=== PATIENT | male | born 1970 | race American Indian/Alaskan Native ===

== ENCOUNTER 2017-04-20 15:03 | Emergency (ER) | payer SELFPAY ==
--- NOTE | 2017-04-20 17:02 | Emergency Department Report ---
HPI - General Chief Complaint: Abdominal Pain Time Seen by Provider: 04/20/17 16:52 - HPI HPI: patient here report that he went to the [facility] 2 weeks ago regarding kidney stones. Patient reports that he was unable to pass the stone and reports that he was told if he does not pass stone to return to the emergency room. He denies any pain at this time. But said he had pain and vomiting yesterday. Pain is usually localized to his abdomen and not in his flank. He denies any urinary burning frequency or urgency. Denies any blood in his urine. Pain at present is 0 out of 10. Denies any fever or chills. He reports that they gave him pain medication 2 weeks ago. She has a history of diabetes, kidney stones and surgical history of hernia repair. Patient said he is from [place] of town. ED Past Medical Hx - Past Medical History Previous Medical History?: Yes Hx Diabetes: Yes Hx Kidney Stones: Yes - Surgical History Past Surgical History?: Yes Additional Surgical History: hernia repair - Family History Family history: diabetes, hypertension - Social History Smoking Status: Former Smoker Substance Use Type: Alcohol - Medications Home Medications: Home Medications Medication Instructions Recorded Confirmed Last Taken Type Ciprofloxacin HCl [Ciprofloxacin 500 mg PO Q12HR #20 tab 04/20/17 Unknown Rx TAB] Promethazine [Phenergan TAB] 25 mg PO Q8HR PRN #12 tab 04/20/17 Unknown Rx Tamsulosin HCl [Flomax] 0.4 mg PO QDAY #3 cap.er.24h 04/20/17 Unknown Rx traMADol [Ultram] 50 mg PO Q6HR PRN #12 tablet 04/20/17 Unknown Rx ED Review of Systems ROS: Stated complaint: KIDNEY STONE Other details as noted in HPI Comment: All other systems reviewed and negative Constitutional: no symptoms reported Respiratory: no symptoms reported Cardiovascular: denies: chest pain, palpitations, dyspnea on exertion, edema, syncope, paroxysmal nocturnal dyspnea Gastrointestinal: denies: abdominal pain, nausea, vomiting Genitourinary: denies: urgency, dysuria, frequency, hematuria, discharge, testicular pain, testicular mass Musculoskeletal: denies: back pain, arthralgia, myalgia Skin: denies: rash Neurological: denies: headache, numbness, paresthesias, confusion, abnormal gait , vertigo Physical Exam - Physical Exam Vital Signs: Vital Signs 04/20/17 15:48 Temperature 98.3 F Pulse Rate 84 Respiratory 16 Rate Blood Pressure 133/87 O2 Sat by Pulse 99 Oximetry General: This is a 47-year-old male well-nourished well-developed in no acute distress. Physical Exam: Head: Normocephalic, atraumatic, no abrasion, no bruising and no contusion. Neck: Supple, Positive Cervical adenopathy, full range of motion and no C-spine tenderness. No swelling or tracheal deviation Cardiovascular: S1, S2. Regular rate and rhythm. No murmur. Capillary refill is less then 3 seconds. Abdomen: Soft, nontender to palpate in all quadrants, no guarding no rebound tenderness, no peritoneal signs and no CVA tenderness. Lungs: Clear to auscultate bilaterally. No rhonchi, wheezes or rales. No chest wall tenderness MSK: Strength 5/5 in all extremities. No joint deformity or crepitus. Normal inspection. Full range of motion to all extremities Extremities: No clubbing, cyanosis or edema. +2 pulses. No neurovascular compromise Skin: Clean, dry and intact. No rash or lesions. Psych: Normal mood and behavior. ED Course Vital Signs 04/20/17 15:48 Temperature 98.3 F Pulse Rate 84 Respiratory 16 Rate Blood Pressure 133/87 O2 Sat by Pulse 99 Oximetry - Reevaluation(s) Reevaluation #1: 04/20/17 18:09 She is stable throughout ED course. He is able to tolerate oral liquids. He did not want anything for pain because he said his pain is 0 out of 10. Awaiting results of BMP and CT scan. urinalysis is normal Reevaluation #2: 04/20/17 18:26 Patient is stable and still awaits CT scan of the abdomen and pelvis ED Medical Decision Making - Lab Data Result diagrams: 04/20/17 17:20 Lab Results 04/20/17 04/20/17 Range/Units 17:20 Unknown Sodium 145 (137-145) mmol/L Potassium 3.7 (3.6-5.0) mmol/L Chloride 104.8 (98-107) mmol/L Carbon Dioxide 28 (22-30) mmol/L Anion Gap 16 mmol/L BUN 10 (9-20) mg/dL Creatinine 1.0 (0.8-1.5) mg/dL Estimated GFR > 60 ml/min BUN/Creatinine Ratio 10 % Glucose 73 L (75-100) mg/dL Calcium 9.1 (8.4-10.2) mg/dL Urine Color Yellow (Yellow) Urine Turbidity Clear (Clear) Urine pH 6.0 (5.0-7.0) Ur Specific [place] 1.028 (1.003-1.030) Urine Protein <15 mg/dl (Negative) mg/dL Urine Glucose (UA) Neg (Negative) mg/dL Urine Ketones Neg (Negative) mg/dL Urine Blood Neg (Negative) Urine Nitrite Neg (Negative) Urine Bilirubin Neg (Negative) Urine Urobilinogen < 2.0 (<2.0) mg/dL Ur Leukocyte Esterase Neg (Negative) Urine WBC (Auto) 3.0 (0.0-6.0) /HPF Urine RBC (Auto) 10.0 (0.0-6.0) /HPF U Epithel Cells (Auto) 1.0 (0-13.0) /HPF Urine Mucus 3+ /HPF - Radiology Data Radiology results: report reviewed CT scan of the abdomen and pelvis without contrast reveals small nonobstructing calculus visualized right kidney. There is no hydronephrosis or urethral callculi . Samantha-pelvic Cysts appears to be present in the right kidney . Mild k right side of the colon. Cannot exclude a short segment of diverticulitis Bilateral spondylolisthesis L4 with grade 1 spondylolisthesis. Mild to moderate degenerative disc disease at the L5 to S1 level severe degenerative disc disease is visualized at the L4 to 5 level LV to S1 level with there appears to be an asymmetric disc bulge or herniation to the right which may be compressing the right S1 nerve root. Prostate gland does not appears to be enlarged. Ureters are not distended. Urinary bladder is only partially filled and therefore stubbed optimally visualized. Right shoulder roll peritoneum with normal abdominal aorta and no aneurysm. Dependent atelectasis bilateral lower lung toure. Liver, gallbladder, pancreas and spleen are unremarkable. - Medical Decision Making ED course: Patient with history of kidney stones where he was seen at the Hospital 2 weeks ago and reported that he was told to return to hospital if he does not pass kidney stone. He also said that provided told him that the stone was small and it was not affected in his kidneys so therefore he will pass it over time. Patient said he was given pain medication and told to drink plenty of fluid but he has not passed stone so that's why he is back in the emergency room. Patient's that he has episode of nausea with abdominal pain yesterday but today he is asymptomatic. Urinalysis normal, BMP stable. CT scan of the abdomen and pelvis reveal small nonobstructive calculus visualized right kidney. There is no hydronephrosis or urethral calculi. Peripelvic cyst appears to be present in the right kidney. Mild diet for her to colitis right side of the colon. Cannot exclude a short segment of diverticulitis. Patient said he had nausea and vomiting with pain to her abdomen yesterday. But he is nontender to palpate. He has bilateral spondylolis at L4 with grade 1 spondylolisthesis. This is explained to patient in detail along with subacute degenerative disc disease. I discussed with him to put him on antibiotic for mild diverticulitis, anti-medic for nausea, Flomax to help to move kidney stone and I also discussed them that this does not always work and that kidney stone could stain his kidney and as long as it is not obstructing in his kidneys then he should not have a problem. I also told him that his kidney function is normal and his urinalysis was normal. I explained to patient that he has mild atelectasis in his lower lung field that he needs to deep breathe and cough more. Patient to be managed outpatient with GI doctor and urologist. He understands that he has to increase his fluid intake and take all medication as prescribed. She discharged home with CD off CT scan and given a prescription for Phenergan, ciprofloxacin and Flomax. Patient asymptomatic throughout ED stay. Critical care attestation.: If time is entered above; I have spent that time in minutes in the direct care of this critically ill patient, excluding procedure time. ED Disposition Clinical Impression: Right kidney stone, Diverticulosis of colon, Nausea and vomiting in adult, Renal cyst, Bulging lumbar disc Diverticulitis large intestine Qualifiers: Diverticulitis bleeding: without bleeding Diverticulitis complication: without perforation or abscess Qualified Code(s): K57.32 - Diverticulitis of large intestine without perforation or abscess without bleeding Degenerative disc disease Qualifiers: Spinal region: lumbosacral Qualified Code(s): M51.37 - Other intervertebral disc degeneration, lumbosacral region Disposition: DC-01 TO HOME OR SELFCARE Is pt being admited?: No Does the pt Need Aspirin: No Condition: Stable Instructions: Diverticulosis (ED), Kidney Stones (ED), Renal Colic (ED), Lumbar Disc Herniation (ED), How to Strain Your Urine (ED), Diverticulitis Diet (ED), Diverticulosis Diet (ED), Degenerative Disc Disease (ED) Additional Instructions: Please increase your fluid intake to 2-3 L of fluid per day Take Flomax and this will help to expedite passing the stone. Please follow up with [facility] for management of kidney stones Prescriptions: Ciprofloxacin HCl [Ciprofloxacin TAB] 500 mg PO Q12HR #20 tab Promethazine [Phenergan TAB] 25 mg PO Q8HR PRN #12 tab PRN Reason: Nausea Tamsulosin HCl [Flomax] 0.4 mg PO QDAY #3 cap.er.24h traMADol [Ultram] 50 mg PO Q6HR PRN #12 tablet PRN Reason: Pain Referrals: [facility] [Provider Group] - 2-3 Days [facility] [Provider Group] - 2-3 Days JOSE SINGH MD [Staff Physician] - 2-3 Days Forms: Accompanied Note, Work/School Release Form(ED)
[2017-04-20 17:41] LABS: Bilirubin,Urine NEG (Negative); Blood,Urine NEG (Negative); Ketones,Urine NEG (Negative); Leukocyte Esterase,Urine NEG (Negative); Mucus,Urine 3+ /HPF; Nitrite,Urine NEG (Negative); Protein,Urine <15 mg/dL mg/dL (Negative); Urobilinogen,Urine < 2.0 mg/dL (<2.0)
[2017-04-20 17:55] LABS: Anion Gap 16 mmol/L; BUN/Creatinine Ratio 10; Blood Urea Nitrogen 10 mg/dL (9-20); Calcium 9.1 mg/dL (8.4-10.2); Carbon Dioxide 28 mmol/L (22-30); Chloride 104.8 mmol/L (98-107); Glucose 73 mg/dL (75-100); Potassium 3.7 mmol/L (3.6-5.0); Sodium 145 mmol/L (137-145)
--- NOTE | 2017-04-20 18:28 | Cat Scan Report ---
FINAL REPORT PROCEDURE: CT ABDOMEN PELVIS WO CON TECHNIQUE: Computerized axial tomography of the abdomen and pelvis was performed without intravenous contrast. This study is performed without intravascular contrast material and its sensitivity for abdominal and pelvic pathology, including neoplasms, inflammation, abscess, free fluid, thrombosis, arterial dissection and infarction, is reduced compared with a contrast enhanced study. HISTORY: renal colic with h/o kidney stones COMPARISON: No prior studies are available for comparison. FINDINGS: Lower Lung toure: There is minimal dependent atelectasis bilaterally. Upper Abdomen: The liver, the gallbladder, unenhanced images of the pancreas and spleen are unremarkable. Kidneys, Ureters and Urinary bladder: There is an oval low-density nodule in the midportion of the right kidney projecting towards the renal pelvis measuring 1.7 x 2.6 centimeter which appears to represent a peripelvic cyst. A nonobstructing calculus in the lower 3rd of the right kidney is visualized measuring 4.2 by 1.8 millimeters. The right and left kidneys otherwise are unremarkable. There is no hydronephrosis. The ureters are not distended. No ureteral calculi are identified. Urinary bladder is only partially filled and therefore suboptimally visualized. No focal abnormality is seen. Retroperitoneum: Abdominal aorta appears normal. No aneurysm is seen Nonspecific subcentimeter lymph nodes are seen in the retroperitoneum. No pathologically enlarged lymph nodes are identified. Bowel: There is mild diverticulosis in the right side of the colon. On image 89 series 3 axial image and coronal reconstruction image 64 series 201 there appears to be mild wall thickening in the right side of the colon and slight decreased density in the submucosal layer. I cannot exclude diverticulitis. I do not see evidence of an abscess or bowel obstruction. Bowel loops otherwise are unremarkable. Normal-appearing appendix is seen in the right lower quadrant. Reproductive organs: Prostate gland does not appear to be enlarged. Other: There is bilateral spondylolysis at L4 with grade 1 spondylolisthesis. Severe degenerative disc disease is visualized at the L4-5 level. There is mild to moderate degenerative disc disease at the L5-S1 level. At the L5-S1 level there appears to be an asymmetric disc bulge or herniation to the right which may be compressing the right S1 nerve root. IMPRESSION: Small nonobstructing calculus visualize right kidney. The no hydronephrosis or ureteral calculi are visualized. Peripelvic cysts appears to be present in the right kidney as described. Mild diverticulosis right side of the colon. As described I cannot exclude a short segment of diverticulitis. Correlation with physical exam recommended. If clinically indicated barium enema could be performed to evaluate the right colon further. Please see above image reference numbers. Bilateral spondylolysis L4 with grade 1 spondylolisthesis..
[2017-04-20 19:03] VITALS: BP 125/79
== END 2017-04-20 19:20 | disposition home or self-care (01) ==
LOC: ED 15:03
DX: K57.32 Diverticulitis of large intestine without perforation or abscess without bleeding (principal); M51.37 Other intervertebral disc degeneration, lumbosacral region; N20.0 Calculus of kidney; K57.90 Diverticulosis of intestine, part unspecified, without perforation or abscess without bleeding; N28.1 Cyst of kidney, acquired; R11.2 Nausea with vomiting, unspecified; M51.06 Intervertebral disc disorders with myelopathy, lumbar region; E11.9 Type 2 diabetes mellitus without complications; Z87.891 Personal history of nicotine dependence
CPT/HCPCS: 36415; 74176; 80048; 81001

== ENCOUNTER 2017-04-27 18:47 | Inpatient (IN) | payer OTHER ==
[2017-04-27 20:13] LABS: Basophils % (Auto) 0.4 % (0.0-1.8); Eosinophils % (Auto) 1.5 % (0.0-4.3); Hematocrit 50.9 % (35.5-45.6); Hemoglobin 16.2 gm/dl (11.8-15.2); Mean Corpuscular HGB Conc 32 % (32-34); Mean Corpuscular Volume 80 fl (84-94); Platelet Count 288 K/mm3 (140-440); Red Blood Count 6.39 M/mm3 (3.65-5.03); Red Cell Distribution Width 15.1 % (13.2-15.2); White Blood Count 19.6 K/mm3 (4.5-11.0)
[2017-04-27 20:27] LABS: Mean Corpuscular Hemoglobin 25 pg (28-32)
[2017-04-27 20:30] LABS: Alanine Aminotransferase 9 units/L (7-56); Albumin 4.3 g/dL (3.9-5); Albumin/Globulin Ratio 1.1 %; Alkaline Phosphatase 68 units/L (35-129); Anion Gap 20 mmol/L; BUN/Creatinine Ratio 11; Blood Urea Nitrogen 11 mg/dL (9-20); Calcium 9.6 mg/dL (8.4-10.2); Carbon Dioxide 25 mmol/L (22-30); Chloride 98.4 mmol/L (98-107); Glucose 95 mg/dL (75-100); Lipase 23 units/L (13-60); Potassium 4.2 mmol/L (3.6-5.0); Sodium 139 mmol/L (137-145); Total Protein 8.1 g/dL (6.3-8.2)
[2017-04-27 20:47] LABS: Bacteria,Urine 1+ /HPF (Negative); Bilirubin,Urine NEG (Negative); Blood,Urine NEG (Negative); Ketones,Urine 20 mg/dL (Negative); Leukocyte Esterase,Urine NEG (Negative); Mucus,Urine 2+ /HPF; Nitrite,Urine NEG (Negative); Protein,Urine <15 mg/dL mg/dL (Negative); Urobilinogen,Urine < 2.0 mg/dL (<2.0)
[2017-04-27] MEDS ORDERED: ZOFRAN IV ONE (23:51)
[2017-04-27] MEDS ORDERED: MORPHINE IV ONE (23:51)
[2017-04-27] MEDS ORDERED: NACL 0.9% 1000 ML 1,000 ML IV ONE (23:52)
--- NOTE | 2017-04-27 23:58 | Emergency Department Report ---
HPI - General Chief Complaint: Abdominal Pain Time Seen by Provider: 04/27/17 23:36 - HPI HPI: 47 year-old male presents to the emergency department with complaint of some chronic abdominal pain, nausea, vomiting. The pain is in the mid to lower portion of his abdomen. The patient was seen at [facility] 3 weeks ago was told that he had a "small kidney stone" and that it would pass. He was seen here at [facility] about one week ago and was found to have an intrarenal stone but otherwise no stone in the ureter, diverticulosis and possible diverticulitis. He went home on Cipro, Flomax, tramadol and Phenergan and says that these medications have not been working. He says that he did make an appointment with the business process consultant but it is not until middle of May. He otherwise does not have a primary care physician. ED Past Medical Hx - Past Medical History Hx Diabetes: Yes Hx Kidney Stones: Yes - Surgical History Additional Surgical History: hernia repair,kidney stone - Social History Smoking Status: Never Smoker Substance Use Type: None - Medications Home Medications: Home Medications Medication Instructions Recorded Confirmed Last Taken Type Ciprofloxacin HCl [Ciprofloxacin 500 mg PO Q12HR #20 tab 04/20/17 Unknown Rx TAB] Promethazine [Phenergan TAB] 25 mg PO Q8HR PRN #12 tab 04/20/17 Unknown Rx Tamsulosin HCl [Flomax] 0.4 mg PO QDAY #3 cap.er.24h 04/20/17 Unknown Rx traMADol [Ultram] 50 mg PO Q6HR PRN #12 tablet 04/20/17 Unknown Rx ED Review of Systems ROS: Stated complaint: ABD PAIN Other details as noted in HPI Comment: All other systems reviewed and negative Constitutional: denies: chills, fever Eyes: denies: eye pain, eye discharge, vision change ENT: denies: ear pain, throat pain Respiratory: denies: cough, shortness of breath, wheezing Cardiovascular: denies: chest pain, palpitations Gastrointestinal: abdominal pain, nausea, vomiting Genitourinary: denies: urgency, dysuria Musculoskeletal: denies: back pain, joint swelling, arthralgia Skin: denies: rash, lesions Neurological: denies: headache, weakness, paresthesias Physical Exam - Physical Exam Vital Signs: Vital Signs 04/27/17 04/27/17 04/27/17 19:11 19:17 23:53 Temperature 99.0 F 99 F Pulse Rate 98 H Respiratory 18 18 16 Rate Blood Pressure 125/89 125/89 O2 Sat by Pulse 100 97 Oximetry Physical Exam: GENERAL: The patient is well-developed well-nourished. HENT: Normocephalic. Atraumatic. Patient has moist mucous membranes. EYES: Extraocular motions are intact. Pupils equal reactive to light bilaterally. NECK: Supple. Trachea is midline. CHEST/LUNGS: Clear to auscultation. There is no respiratory distress noted. HEART/CARDIOVASCULAR: Regular. There is no tachycardia. There is no gallop rub or murmur. ABDOMEN: Abdomen is soft. There is some periumbilical tenderness to palpation but no guarding or rebound tenderness. No peritoneal signs. Patient has normal bowel sounds. There is no abdominal distention. SKIN: Skin is warm and dry. NEURO: The patient is awake, alert, and oriented. The patient is cooperative. The patient has no focal neurologic deficits. The patient has normal speech. MUSCULOSKELETAL: There is no tenderness or deformity. There is no limitation range of motion. There is no evidence of acute injury. ED Course Vital Signs 04/27/17 04/27/17 04/27/17 19:11 19:17 23:53 Temperature 99.0 F 99 F Pulse Rate 98 H Respiratory 18 18 16 Rate Blood Pressure 125/89 125/89 O2 Sat by Pulse 100 97 Oximetry - Consultations Consultation #1: I spoke to the general surgeon telephone operator chief, Dr. Lieberman, who did not feel that the patient required a NG tube but has agreed to see the patient has a consultation. He requested that a repeat CBC be done. 04/28/17 03:36 ED Medical Decision Making - Lab Data Result diagrams: 04/28/17 02:27 04/27/17 19:47 - Radiology Data Radiology results: report reviewed EXAM: CT ABDOMEN PELVIS W CON HISTORY: Abd pain MIDLINE PELVIC PAIN TECHNIQUE: Routine axial imaging was obtained of the abdomen and pelvis following the intravenous injection of 100 cc of Omnipaque 350. Sagittal and coronal reconstructions were reviewed. The previous study of 04/20/2017 was reviewed for correlation. FINDINGS: The lung bases are clear. Pleural fluid is not seen. The liver, gallbladder, pancreas, spleen, and adrenal glands appear normal. The kidneys are remarkable for a 2.3 cm peripelvic cyst in the right kidney. There is no evidence of hydronephrosis. The vascular structures enhance normally. There is no evidence of lymphadenopathy. The bowel loops reveal mildly distended ileal loops in the lower pelvis measure up to 3.3 cm in diameter. There are multiple partially fluid-filled loops of ileum. A partial mechanical small bowel obstruction cannot entirely be excluded. The appendix appears normal. In the pelvis the prostate gland and bladder appear normal. The skeletal structures reveal grade 1 anterolisthesis of L4 over L5 secondary to disc degeneration and pars defects. IMPRESSION: Distended and fluid-filled loops of ileum as described suspicious for partial mechanical small bowel obstruction. Normal appendix. Transcribed By: RB Dictated By: JOSE GARCIA MD Electronically Authenticated By: JOSE GARCIA MD Signed Date/Time: 04/27/172137 - Medical Decision Making 47-year-old male with acute on chronic abdominal pain, nausea and vomiting has a CT scan that shows concern for partial small bowel obstruction. He will be admitted to the hospitalist service with a Gen. surgery consultation. Vital signs stable. The patient has a 20,000 white count but upon repeated the CBC appears to have gone down to about 15,000. Given some Zosyn empirically. Accepted for admission by hospitalist, Dr. Burroughs. - Differential Diagnosis nephrolithiasis, appendicitis, diverticulitis, bowel obstruction Critical Care Time: No Critical care attestation.: If time is entered above; I have spent that time in minutes in the direct care of this critically ill patient, excluding procedure time. ED Disposition Clinical Impression: Partial small bowel obstruction Abdominal pain Qualifiers: Abdominal location: periumbilical Qualified Code(s): R10.33 - Periumbilical pain Leukocytosis Qualifiers: Leukocytosis type: unspecified Qualified Code(s): D72.829 - Elevated white blood cell count, unspecified Disposition: 09 OP ADMIT IP TO THIS HOSP Is pt being admited?: Yes Condition: Stable Referrals: PRIMARY CAREMD [Primary Care Provider] - 3-5 Days Time of Disposition: 03:39
[2017-04-28] MEDS ORDERED: NACL ONE (00:40)
--- NOTE | 2017-04-28 01:41 | Cat Scan Report ---
FINAL REPORT EXAM: CT ABDOMEN PELVIS W CON HISTORY: Abd pain MIDLINE PELVIC PAIN TECHNIQUE: Routine axial imaging was obtained of the abdomen and pelvis following the intravenous injection of 100 cc of Omnipaque 350. Sagittal and coronal reconstructions were reviewed. The previous study of 04/20/2017 was reviewed for correlation. FINDINGS: The lung bases are clear. Pleural fluid is not seen. The liver, gallbladder, pancreas, spleen, and adrenal glands appear normal. The kidneys are remarkable for a 2.3 cm peripelvic cyst in the right kidney. There is no evidence of hydronephrosis. The vascular structures enhance normally. There is no evidence of lymphadenopathy. The bowel loops reveal mildly distended ileal loops in the lower pelvis measure up to 3.3 cm in diameter. There are multiple partially fluid-filled loops of ileum. A partial mechanical small bowel obstruction cannot entirely be excluded. The appendix appears normal. In the pelvis the prostate gland and bladder appear normal. The skeletal structures reveal grade 1 anterolisthesis of L4 over L5 secondary to disc degeneration and pars defects. IMPRESSION: Distended and fluid-filled loops of ileum as described suspicious for partial mechanical small bowel obstruction. Normal appendix.
[2017-04-28] MEDS ORDERED: ZOSYN/NS 4.5GM/100ML 4.5 GM/100 ML VIAL IV ONE (02:01)
[2017-04-28 02:40] LABS: Basophils % (Auto) 0.5 % (0.0-1.8); Eosinophils % (Auto) 2.3 % (0.0-4.3); Hematocrit 44.8 % (35.5-45.6); Hemoglobin 14.8 gm/dl (11.8-15.2); Mean Corpuscular HGB Conc 33 % (32-34); Mean Corpuscular Hemoglobin 26 pg (28-32); Mean Corpuscular Volume 79 fl (84-94); Platelet Count 243 K/mm3 (140-440); Red Blood Count 5.64 M/mm3 (3.65-5.03); Red Cell Distribution Width 14.4 % (13.2-15.2); White Blood Count 14.7 K/mm3 (4.5-11.0)
[2017-04-28] MEDS ORDERED: MORPHINE IV ONE (03:04)
[2017-04-28] MEDS ORDERED: MORPHINE ONE (03:17)
[2017-04-28] MEDS ORDERED: MORPHINE IV PRN (03:19)
[2017-04-28] MEDS ORDERED: ZOFRAN IV PRN (03:19)
[2017-04-28] MEDS ORDERED: TYLENOL PO PRN (03:19)
--- NOTE | 2017-04-28 03:21 | History and Physical Report ---
History of Present Illness Date of examination: 04/28/17 History of present illness: 47-year-old man with no medical problem causing emergency room with complaints of bone pain. He was seen also on June 20 for similar symptoms and was discharged from the emergency room. Abdominal pain is in the mid abdomen which he described as dull pain, intermittent in nature, lasting for 5 minutes, intensity 7/10, no radiation and he cannot identify exacerbating or relieving factor. He has been experiencing multiple episodes of nausea vomiting, unable to tolerate oral intake Review Of Systems: Constitutional: no weight loss Ears, eyes, nose, mouth and throat: no nasal congestion, no nasal discharge, no sinus pressure, blurry vision, diplopia Neck: No neck pain or rigidity. Cardiovascular: chest pain, orthopnea, palpitations Respiratory: No shortness of breath, cough Gastrointestinal: +abdominal pain, no hematochezia Genitourinary : no dysuria, frequency , hematuria Musculoskeletal: no muscle ache Integumentary: no rash, no pruritis Neurological: no parathesias, focal weakness Endocrine: no cold or heat intolerance, no polyuria or polydipsia Hematologic/Lymphatic: no easy bruising, no easy bleeding, no gland swelling Allergic/Immunologic: no urticaria, no angioedema. PAST MEDICAL HISTORY:none PAST SURGICAL HISTORY: Hernia repair FAILY HISTORY: Hypertension SOCIAL HISTORY: Denies alcohol, tobacco or drug Medications and Allergies Allergies Allergy/AdvReac Type Severity Reaction Status Date / Time No Known Allergies Allergy Unverified 04/20/17 15:46 Home Medications Medication Instructions Recorded Confirmed Last Taken Type Ciprofloxacin HCl [Ciprofloxacin 500 mg PO Q12HR #20 tab 04/20/17 Unknown Rx TAB] Promethazine [Phenergan TAB] 25 mg PO Q8HR PRN #12 tab 04/20/17 Unknown Rx Tamsulosin HCl [Flomax] 0.4 mg PO QDAY #3 cap.er.24h 04/20/17 Unknown Rx traMADol [Ultram] 50 mg PO Q6HR PRN #12 tablet 04/20/17 Unknown Rx Exam - Physical Exam Narrative exam: Gen. appearance: Patient lying in bed in no acute distress HEENT: Normocephalic/atraumatic, pupils equal round reactive to light, extra alkaline movement intact, no scleral icterus, no JVD or thyromegaly or nodule, neck is supple, mucous membrane moist, no erythema or exudate Heart: S1-S2, regular rate and rhythm Lungs: Clear to auscultation bilateral breathing comfortable Abdomen: Positive bowel sounds, tender in the mid abdomen, nondistended, no organomegaly Extremities: No edema, cyanosis, clubbing Neuro:: Oriented 3 , cranial nerves II-12 intact, speech, motor intact Skin: No rash, nodules, warm dry - Constitutional Vitals: Temp Pulse Resp BP Pulse Ox 99 F 98 H 16 107/65 98 04/27/17 19:17 04/27/17 19:17 04/27/17 23:53 04/28/17 01:00 04/28/17 01:00 Results - Labs CBC & Chem 7: 04/28/17 02:27 04/27/17 19:47 Labs: Abnormal lab results 04/27/17 04/28/17 Range/Units 19:47 02:27 WBC 19.6 H 14.7 H (4.5-11.0) K/mm3 RBC 6.39 H 5.64 H (3.65-5.03) M/mm3 Hgb 16.2 H (11.8-15.2) gm/dl Hct 50.9 H (35.5-45.6) % MCV 80 L 79 L (84-94) fl MCH 25 L 26 L (28-32) pg Lymph % (Auto) 9.8 L (13.4-35.0) % [place] % (Auto) 7.6 H (0.0-7.3) % [place] # 1.2 H 1.1 H (0.0-0.8) K/mm3 Seg Neutrophils % 82.3 H 74.8 H (40.0-70.0) % Seg Neutrophils # 16.1 H 11.0 H (1.8-7.7) K/mm3 - Imaging and Cardiology CT scan - abdomen: report reviewed CT scan - pelvis: report reviewed Assessment and Plan Assessment Small bowel obstruction SIRS Plan Admit medicine Placed on bowel rest, NG tube to suction Start IV full, IV Zosyn, consult surgery DVT prophylaxis, IV morphine
[2017-04-28] MEDS ORDERED: NACL 0.45% 1000 ML 1,000 ML IV SCH (04:00)
[2017-04-28] MEDS: NACL 0.9% 1000 ML 1,000 ML IV SCH (12:02)
[2017-04-28] MEDS: ZOSYN/NS 4.5GM/100ML 4.5 GM/100 ML VIAL IV SCH ×4 (12:02→23:29)
[2017-04-28] MEDS: LOVENOX SUB-Q SCH (12:03)
[2017-04-28] MEDS ORDERED: CHLORASEPTIC MM PRN (12:31)
[2017-04-28] MEDS: PEPCID IV SCH ×2 (13:52→23:30)
--- NOTE | 2017-04-29 03:02 | Consultation ---
HISTORY OF PRESENT ILLNESS: This man was seen last night apparently by our hospitalist and he was admitted. He was seen three times in the emergency rooms in the last 3 weeks and he had three CT scans from what he told me. The first one was in [place], second one was here and then this is the third time. He was told that he has a kidney stone on the left side and he came with some pain to the abdomen, more to the right flank area with nausea, no vomiting. He denied any stones in the past. Apparently, he was not seen by urologist because he did not go to see urologist, although he was given a name for him to see. The patient had surgery on the right inguinal area and he never had any operations. He denied any diabetes. He is a healthy young man otherwise. According to him, the pain has improved markedly and he does not have any pain now when I saw him late in the morning of 04/28/2017. ALLERGIES: Allergic reactions were denied. MEDICATIONS: None. SOCIAL HISTORY: The patient has 7 children, youngest is 6 years old and the oldest is 24 from what I could tell. PHYSICAL EXAMINATION: GENERAL: Well-preserved, healthy looking young black man who is in no distress to me. He had NG tube, but that is not aspirating anything. HEAD AND NECK: Essentially negative. NECK: Supple. CHEST: Essentially clear. HEART: Sounds normal to me. ABDOMEN: Flat, soft, benign. Very minimal tenderness in the right flank area. GENITALIA: Showed normal male genitalia. NEUROLOGIC: Neurologically, the patient is stable. IMPRESSION AND PLAN: Right-sided abdominal pain with nausea with questionable minimal dilatation of the small intestines. I believe this is all related to the kidney stone that he had. It is on the right side from what he told me. At the present time, I believe, no surgical intervention is warranted. He needs Urology to see him trying to get hold of hospitalist into that effect.I called Dr Esqueda in this regard , she will handle it . JOB# [id number] ELISABET/MELISSA ALVARADO
[2017-04-29] MEDS: NACL 0.9% 1000 ML 1,000 ML IV SCH (03:37)
[2017-04-29 05:05] LABS: Basophils % (Auto) 0.3 % (0.0-1.8); Eosinophils % (Auto) 2.9 % (0.0-4.3); Hematocrit 42.4 % (35.5-45.6); Hemoglobin 14.4 gm/dl (11.8-15.2); Mean Corpuscular HGB Conc 34 % (32-34); Mean Corpuscular Hemoglobin 27 pg (28-32); Mean Corpuscular Volume 80 fl (84-94); Platelet Count 252 K/mm3 (140-440); Red Blood Count 5.32 M/mm3 (3.65-5.03); Red Cell Distribution Width 14.8 % (13.2-15.2)
[2017-04-29] MEDS: ZOSYN/NS 4.5GM/100ML 4.5 GM/100 ML VIAL IV SCH ×3 (05:10→23:35)
[2017-04-29 05:27] LABS: Anion Gap 19 mmol/L; BUN/Creatinine Ratio 11; Blood Urea Nitrogen 13 mg/dL (9-20); Calcium 8.6 mg/dL (8.4-10.2); Carbon Dioxide 25 mmol/L (22-30); Chloride 104.4 mmol/L (98-107); Glucose 79 mg/dL (75-100); Potassium 3.8 mmol/L (3.6-5.0); Sodium 145 mmol/L (137-145)
[2017-04-29] MEDS: LOVENOX SUB-Q SCH (10:20)
[2017-04-29] MEDS: PEPCID IV SCH ×2 (10:48→23:35)
--- NOTE | 2017-04-29 17:53 | Progress Note ---
Assessment and Plan Assessment and plan: SBO - s/p NGT to suction, bowel rest; improving, start clear liquid diet and continue to monitor Nephrolithiasis - right renal stone; incidental finding on a previous CT; not related with current symptoms and imaging of dilated small bowel loops; will need outpatient monitoring, possible reimaging in 4-6 months DVT prophylaxis History Interval history: feeling better, NGT tube removed no nausea or vomiting, passing gas Hospitalist Physical - Constitutional Vitals: Temp Pulse Resp BP Pulse Ox 97.8 F 71 18 117/69 99 04/29/17 16:28 04/29/17 16:28 04/29/17 16:28 04/29/17 16:28 04/29/17 16:28 General appearance: Present: no acute distress, well-nourished - EENT Eyes: Present: PERRL, EOM intact - Neck Neck: Present: supple, normal ROM. Absent: masses or JVD - Respiratory Respiratory effort: normal Respiratory: bilateral: CTA, negative: rhonchi, wheezing - Cardiovascular Rhythm: regular Heart Sounds: Present: S1 & S2. Absent: systolic murmur - Extremities Extremities: no ischemia - Abdominal General gastrointestinal: soft, non-tender, non-distended, normal bowel sounds - Psychiatric Psychiatric: cooperative - Neurologic Neurologic: CNII-XII intact, no focal deficits Results - Labs CBC & Chem 7: 04/29/17 04:38 04/29/17 04:38 Labs: Laboratory Last Values WBC 11.0 K/mm3 (4.5-11.0) 04/29/17 04:38 RBC 5.32 M/mm3 (3.65-5.03) H 04/29/17 04:38 Hgb 14.4 gm/dl (11.8-15.2) 04/29/17 04:38 Hct 42.4 % (35.5-45.6) 04/29/17 04:38 MCV 80 fl (84-94) L 04/29/17 04:38 MCH 27 pg (28-32) L 04/29/17 04:38 MCHC 34 % (32-34) 04/29/17 04:38 RDW 14.8 % (13.2-15.2) 04/29/17 04:38 Plt Count 252 K/mm3 (140-440) 04/29/17 04:38 Lymph % (Auto) 17.7 % (13.4-35.0) 04/29/17 04:38 [place] % (Auto) 8.2 % (0.0-7.3) H 04/29/17 04:38 Eos % (Auto) 2.9 % (0.0-4.3) 04/29/17 04:38 Baso % (Auto) 0.3 % (0.0-1.8) 04/29/17 04:38 Lymph # 1.9 K/mm3 (1.2-5.4) 04/29/17 04:38 [place] # 0.9 K/mm3 (0.0-0.8) H 04/29/17 04:38 Eos # 0.3 K/mm3 (0.0-0.4) 04/29/17 04:38 Baso # 0.0 K/mm3 (0.0-0.1) 04/29/17 04:38 Seg Neutrophils % 70.9 % (40.0-70.0) H 04/29/17 04:38 Seg Neutrophils # 7.8 K/mm3 (1.8-7.7) H 04/29/17 04:38 Sodium 145 mmol/L (137-145) 04/29/17 04:38 Potassium 3.8 mmol/L (3.6-5.0) 04/29/17 04:38 Chloride 104.4 mmol/L (98-107) 04/29/17 04:38 Carbon Dioxide 25 mmol/L (22-30) 04/29/17 04:38 Anion Gap 19 mmol/L 04/29/17 04:38 BUN 13 mg/dL (9-20) 04/29/17 04:38 Creatinine 1.2 mg/dL (0.8-1.5) 04/29/17 04:38 Estimated GFR > 60 ml/min 04/29/17 04:38 BUN/Creatinine Ratio 11 % 04/29/17 04:38 Glucose 79 mg/dL (75-100) 04/29/17 04:38 Calcium 8.6 mg/dL (8.4-10.2) 04/29/17 04:38 Total Bilirubin 0.80 mg/dL (0.1-1.2) 04/27/17 19:47 AST 12 units/L (5-40) 04/27/17 19:47 ALT 9 units/L (7-56) 04/27/17 19:47 Alkaline Phosphatase 68 units/L (35-129) 04/27/17 19:47 Total Protein 8.1 g/dL (6.3-8.2) 04/27/17 19:47 Albumin 4.3 g/dL (3.9-5) 04/27/17 19:47 Albumin/Globulin Ratio 1.1 % 04/27/17 19:47 Lipase 23 units/L (13-60) 04/27/17 19:47 Urine Color Yellow (Yellow) 04/27/17 Unknown Urine Turbidity Clear (Clear) 04/27/17 Unknown Urine pH 5.0 (5.0-7.0) 04/27/17 Unknown Ur Specific [place] 1.024 (1.003-1.030) 04/27/17 Unknown Urine Protein <15 mg/dl mg/dL (Negative) 04/27/17 Unknown Urine Glucose (UA) Neg mg/dL (Negative) 04/27/17 Unknown Urine Ketones 20 mg/dL (Negative) 04/27/17 Unknown Urine Blood Neg (Negative) 04/27/17 Unknown Urine Nitrite Neg (Negative) 04/27/17 Unknown Urine Bilirubin Neg (Negative) 04/27/17 Unknown Urine Urobilinogen < 2.0 mg/dL (<2.0) 04/27/17 Unknown Ur Leukocyte Esterase Neg (Negative) 04/27/17 Unknown Urine WBC (Auto) 1.0 /HPF (0.0-6.0) 04/27/17 Unknown Urine RBC (Auto) 1.0 /HPF (0.0-6.0) 04/27/17 Unknown U Epithel Cells (Auto) < 1.0 /HPF (0-13.0) 04/27/17 Unknown Urine Bacteria (Auto) 1+ /HPF (Negative) 04/27/17 Unknown Urine Mucus 2+ /HPF 04/27/17 Unknown - Imaging and Cardiology CT scan - abdomen: report reviewed
[2017-04-30] MEDS: ZOSYN/NS 4.5GM/100ML 4.5 GM/100 ML VIAL IV SCH ×2 (02:03→06:21)
--- NOTE | 2017-04-30 05:28 | Progress Note ---
Subjective Narrative: Seen yesterday , having a BM , ambulatory talked to Dr Rea as to Urology consult ? No evidence of a general sutgical problem , will obtain a KUB , Objective Vital Signs - 12hr 04/29/17 04/29/17 04/29/17 22:00 23:50 23:51 Temperature 98.4 F Pulse Rate 77 74 Pulse Rate [ 68 Left Radial] Respiratory 18 20 Rate Respiratory 18 Rate [abd] Blood Pressure 132/94 O2 Sat by Pulse 99 98 Oximetry - Labs 04/29/17 04:38 04/29/17 04:38 Diabetes panel 04/29/17 Range/Units 04:38 Sodium 145 (137-145) mmol/L Potassium 3.8 (3.6-5.0) mmol/L Chloride 104.4 (98-107) mmol/L Carbon Dioxide 25 (22-30) mmol/L BUN 13 (9-20) mg/dL Creatinine 1.2 (0.8-1.5) mg/dL Glucose 79 (75-100) mg/dL Calcium 8.6 (8.4-10.2) mg/dL Calcium panel 04/29/17 Range/Units 04:38 Calcium 8.6 (8.4-10.2) mg/dL Pituitary panel 04/29/17 Range/Units 04:38 Sodium 145 (137-145) mmol/L Potassium 3.8 (3.6-5.0) mmol/L Chloride 104.4 (98-107) mmol/L Carbon Dioxide 25 (22-30) mmol/L BUN 13 (9-20) mg/dL Creatinine 1.2 (0.8-1.5) mg/dL Glucose 79 (75-100) mg/dL Calcium 8.6 (8.4-10.2) mg/dL Adrenal panel 04/29/17 Range/Units 04:38 Sodium 145 (137-145) mmol/L Potassium 3.8 (3.6-5.0) mmol/L Chloride 104.4 (98-107) mmol/L Carbon Dioxide 25 (22-30) mmol/L BUN 13 (9-20) mg/dL Creatinine 1.2 (0.8-1.5) mg/dL Glucose 79 (75-100) mg/dL Calcium 8.6 (8.4-10.2) mg/dL
[2017-04-30] MEDS: NACL 0.9% 1000 ML 1,000 ML IV SCH (06:22)
[2017-04-30 07:46] VITALS: BP 110/72
--- NOTE | 2017-04-30 10:12 | XRay Report ---
ABDOMEN RADIOGRAPHS INDICATION: Small bowel obstruction. COMPARISON: 04/28/2017 CT FINDINGS: Frontal supine abdominal radiographs demonstrate nonobstructive bowel gas pattern. Mild to moderate colonic stool/possible constipation. No focal suspicious calcifications, pneumatosis or pneumoperitoneum. Clear visualized lung bases. Advanced L4-L5 degenerative changes. CONCLUSION: No acute abdominal radiographic abnormality with few other findings, as above. Thank you for the opportunity to participate in this patient's care.
--- NOTE | 2017-04-30 11:12 | Discharge Summary ---
Providers - Providers Date of Admission: 04/28/17 03:19 Date of discharge: 04/30/17 Attending physician: SOPHIE THAPA Consults: Gen. surgery Primary care physician: BLAIRE STANFORD MD Hospitalization Reason for admission: abdominal pain, nausea, vomiting Condition: Stable Pertinent studies: CT abdomen/pelvis [facility] Hospital course: Patient is a 47 years old male with no significant medical problems who presented complaining of abdominal pain associated with nausea and vomiting. Diagnosed with partial small bowel obstruction, treated conservatively, improved and discharged in stable condition. Does have an incidental finding of right nephrolithiasis with no hydronephrosis or other consequences; advised to have outpatient monitoring and possible reimaging in 4-6 months or sooner if he develops symptoms. Discharge diagnoses: SBO Nephrolithiasis Disposition: TO HOME OR SELFCARE Time spent for discharge: 35 minutes Core Measure Documentation - Palliative Care Palliative Care/ Comfort Measures: Not Applicable - Core Measures Any of the following diagnoses?: none Exam - Physical Exam Narrative exam: Seen and examined: - Constitutional Vitals: Temp Pulse Resp BP Pulse Ox 98.1 F 56 L 16 110/72 98 04/30/17 07:23 04/30/17 07:23 04/30/17 07:23 04/30/17 07:23 04/30/17 07:23 General appearance: Present: no acute distress, well-nourished - EENT Eyes: Present: PERRL, EOM intact - Neck Neck: Present: supple, normal ROM. Absent: enlarged thyroid, masses or JVD - Respiratory Respiratory effort: normal Respiratory: bilateral: CTA, negative: rhonchi, wheezing - Cardiovascular Rhythm: regular Heart Sounds: Present: S1 & S2. Absent: systolic murmur - Extremities Extremities: no ischemia - Abdominal General gastrointestinal: Present: soft, non-tender, non-distended, normal bowel sounds - Musculoskeletal Musculoskeletal: strength equal bilaterally - Psychiatric Psychiatric: cooperative - Neurologic Neurologic: CNII-XII intact, no focal deficits Plan Activity: advance as tolerated Diet: low cholesterol, low salt Follow up with: PRIMARY CARE, [Primary Care Provider] - 3-5 Days Prescriptions: Docusate Sodium [Colace] 100 mg PO BID #60 capsule Polyethylene Glycol 3350 [Miralax 3350] 17 gm PO QDAY #30 packet
--- NOTE | 2017-04-30 11:59 | Event Note ---
Date: 04/30/17 Pt seen and examined, abd film demonstrates resolution of patial SBO /illeus, abd exam benign, agree with discharge, (I am covering for Dr. Lieberman.)
[2017-04-30] MEDS ORDERED: PEPCID PO SCH (13:00)
== END 2017-04-30 13:45 | disposition home or self-care (01) | DRG 389 ==
LOC: ED 18:47 → 3B-SURG 04-28 03:19
PROVIDERS: ADMIT Internal Medicine; ATTEND Internal Medicine
DX: K56.600 Partial intestinal obstruction, unspecified as to cause (principal); R65.10 Systemic inflammatory response syndrome (SIRS) of non-infectious origin without acute organ dysfunction; Z82.49 Family history of ischemic heart disease and other diseases of the circulatory system; Z79.2 Long term (current) use of antibiotics; Z79.899 Other long term (current) drug therapy
CPT/HCPCS: 36415; 74000; 74177; 80048; 80053; 81001; 83690; 85025; 87040; 96361; 96374; 96375; 99285; J1650; J2270; J2405; J2543; J7030; Q9967